=== PATIENT | female | born 1970 | race African-American/Black ===

== ENCOUNTER 2017-03-02 18:01 | Emergency (ER) | payer BC ==
[2017-03-02] MEDS ORDERED: ONDANSETRON PF 4 MG/2 ML VIAL. IV ONE (18:30)
[2017-03-02] MEDS ORDERED: HYDROmorphone PF 1 MG/ML DISP.SYRIN IV ONE ×2 (18:30→19:45)
[2017-03-02] MEDS ORDERED: IV NORMAL SALINE 1,000ML 1,000 ML IV ONE (18:30)
[2017-03-02 19:12] LABS: BASO # 0.1 x10^3/uL (0.0-0.2); BASO % 1 % (0-3); EOS # 0.4 x10^3/uL (0.0-0.7); EOS % 3 % (0-3); HEMATOCRIT 36.3 % (36.0-47.0); HEMOGLOBIN 11.8 g/dL (12.0-15.5); LYMPH # 3.2 x10^3/uL (1.0-4.8); LYMPH % 27 % (24-48); MEAN CORPUSCULAR HEMOGLOBIN 26 pg (25-35); MEAN CORPUSCULAR HGB CONC 33 g/dL (31-37); MEAN CORPUSCULAR VOLUME 81 fL (79-100); MONO # 0.6 x10^3/uL (0.0-1.1); MONO % 5 % (0-9); NEUT # 7.6 x10^3uL (1.8-7.7); NEUT % 64 % (31-73); PLATELET COUNT 367 x10^3/uL (140-400); WHITE BLOOD COUNT 11.9 x10^3/uL (4.0-11.0)
[2017-03-02 19:20] LABS: ALBUMIN 2.3 g/dL (3.4-5.0); ALBUMIN/GLOBULIN RATIO 0.8 (1.0-1.7); CALCIUM 6.1 mg/dL (8.5-10.1); CREATININE 0.8 mg/dL (0.6-1.0); GFR 93.9; TOTAL BILIRUBIN 0.1 mg/dL (0.2-1.0); TOTAL PROTEIN 5.1 g/dL (6.4-8.2)
[2017-03-02 19:22] LABS: POTASSIUM 2.7 mmol/L (3.5-5.1)
--- NOTE | 2017-03-02 19:32 | RAD ---
CT scan of the head without contrast 03/02/2017 Clinical History: Sudden onset of headache and memory loss. Technique: Unenhanced, contiguous, 5 mm axial sections were obtained through the head. One or more of the following individualized dose reduction techniques were utilized for this study: 1. Automated exposure control. 2. Adjustment of the mA and/or kV according to patient size. 3. Use of iterative reconstruction technique. Findings: The ventricles and sulci are within normal limits in size and configuration. No focal area of abnormal attenuation is seen involving the brain parenchyma. No extra-axial fluid collection is seen. No skull fracture is seen. Impression: Negative study. Electronically signed by: Hernán Parnell MD (03/02/2017 7:28 PM) [facility]
[2017-03-02] MEDS ORDERED: KETOROLAC 30 MG/ML VIAL. IV ONE (19:45)
[2017-03-02] MEDS ORDERED: POTASSIUM CHLORIDE 20 MEQ TABLET.ER. PO ONE (19:45)
[2017-03-02 20:23] LABS: BILIRUBIN,URINE NEG (NEG); CLARITY,URINE HAZY; COLOR,URINE YELLOW; GLUCOSE,URINE NEG (NEG); NITRITE,URINE NEG (NEG); UROBILINOGEN,URINE 0.2 mg/dL (0.2 mg/dL)
[2017-03-02 20:35] LABS: BACTERIA,URINE FEW /HPF (0-FEW); SQUAMOUS EPITHELIAL CELL,UR MANY /LPF
[2017-03-02] MEDS ORDERED: POTA20TA84 PO (20:42)
--- NOTE | 2017-03-02 20:42 | PHYS DOC ---
Past History Past Medical History: No Pertinent History Past Surgical History: No Surgical History Alcohol Use: None Drug Use: None Adult General Chief Complaint Chief Complaint: HEADACHE HPI HPI Patient is a 46-year-old female with no past medical history presents to the ER today complaining of headache with nausea and vomiting that started earlier today. Patient reports she has pain specifically in the right posterior occipital area. Patient reports the pain occurred gradually over the course of 1 -2 hours but initially started while she was sitting in a chair after eating dinner. Patient reports one episode of nausea and vomiting. Patient reports after emesis she felt much better. Patient reports that the pain has radiated down her neck into her right shoulder. Patient currently without any other complaints of nausea vomiting diarrhea chest pain shortness of breath cough cold or runny nose. Patient denies any double or blurred vision. Patient has any weakness to her upper or lower extremities. Patient denies any paresthesias to her face or slurred speech. Patient denies any visual changes. Patient has any fevers shakes chills cough cold or runny nose. Patient has any photophobia. Patient denies any nuchal rigidity. Patient reports that she has a family history of stroke and was worried that she might be having a stroke but she was also experiencing some memory loss at the time. Patient's ER physical exam was significant for tenderness to palpation to her right posterior occiput. Patient's pupils were equally round and reactive to light. Her extraocular motions are intact. Patient normal funduscopic exam. Patient was alert awake oriented 3. She was neurologically intact. Patient had good memory of short-term and long-term items. Patient was able to articulate words and symptoms very well. Patient's motor strength was 5 out of 5 in her upper and lower extremity. Sensation was intact. Her cranial nerves to 12 are intact. Was regular rate and rhythm. Lungs were clear. No wheezing rales or rhonchi. No nuchal rigidity, no photophobia. Patient does not present with any signs or symptoms of be consistent with meningitis. Patient is nontoxic appearing and resting comfortably. Patient's ER workup was significant for labs that only revealed hypokalemia with potassium 2.7. This has been repleted in the ER. Patient's vital signs have been stable patient was slightly tachycardic at a heart rate of 105 over 1 ER and after the fluids her heart rate does come down to 95. Patient's EKG revealed normal sinus rhythm with nonspecific ST-T wave abnormalities heart rate of 93. No evidence of ST elevation [place]. EKG does not reveal evidence of anterolateral myocardial damage. I disagree with the reading from the EKG. While in the ER the patient was given a liter of normal saline, Dilaudid 0.5 mg IV 2 doses, Toradol IV and Zofran. Patient reports significant improvement in her symptoms. Patient currently reports the pain is a 1-2 out of 10. Patient feels comfortable with the plan to be discharged home. Patient's CT scan of her head was discussed with her which was unremarkable for any acute pathology. Assessment and plan: Right-sided occipital headache. This does not appear to be acute onset/ thunderclap type headache. Patient reports has been gradually getting worse. Patient denies any other symptomatology and appears headache is significantly improved while in the ER. Patient's ER workup has been unremarkable. Patient feels very comfortable the plan to be discharged home. LP has been offered patient however given her significant improvement in symptoms utilizing shared decision making the patient currently is declining. Patient understands the risk and the limitations of an ER workup including the possibility of still having a stroke versus subarachnoid and the need to follow-up with her primary care physician if the symptoms persist. Review of Systems Review of Systems Current Medications Current Medications Current Medications Medications (Trade) Dose Ordered Sig/Stephy Start Time Stop Time Status Last Admin Dose Admin Hydromorphone HCl (Dilaudid) 0.5 mg 1X ONCE 03/02/17 19:45 03/02/17 19:46 DC 03/02/17 20:05 0.5 MG Ketorolac Tromethamine (Toradol) 30 mg 1X ONCE 03/02/17 19:45 03/02/17 19:46 DC 03/02/17 20:00 30 MG Ondansetron HCl (Zofran) 4 mg 1X ONCE 03/02/17 18:30 03/02/17 18:31 DC 03/02/17 18:53 4 MG Potassium Chloride (Klor-Con) 40 meq 1X ONCE 03/02/17 19:45 03/02/17 19:46 DC 03/02/17 20:00 40 MEQ Sodium Chloride 1,000 ml @ 1,000 mls/hr 1X ONCE 03/02/17 18:30 03/02/17 19:29 DC 03/02/17 18:50 1,000 MLS/HR Allergies Allergies Allergies Coded Allergies Type Severity Reaction Last Updated Verified No Known Drug Allergies 03/02/17 No Physical Exam Physical Exam Review of systems: Constitutional: Denies fever or chills Eyes: Denies change in visual acuity, redness, or eye pain HENT: Denies nasal congestion or sore throat All other review systems are negative except as documented in the history of present illness portion. Physical exam: Constitutional: Well developed, well nourished, no acute distress, non-toxic appearance. HENT: Normocephalic, atraumatic, bilateral external ears normal, oropharynx moist, no oral exudates, nose normal. Eyes: PERRLA, EOMI, conjunctiva normal, no discharge. Neck: Normal range of motion, no tenderness, supple, no stridor. Cardiovascular:Heart rate regular rhythm Lungs & Thorax: Bilateral breath sounds clear to auscultation Abdomen: Bowel sounds normal, soft, no tenderness, no masses, no pulsatile masses. Skin: Warm, dry, no erythema, no rash. Back: No tenderness, no CVA tenderness. Extremities: No tenderness, no cyanosis, no clubbing, ROM intact, no edema. Neurologic: Alert and oriented X 3, normal motor function, normal sensory function, no focal deficits noted. Psychologic: Affect normal, judgement normal, mood normal. Current Patient Data Vital Signs Vital Signs Date Time Temp Pulse Resp B/P (MAP) Pulse Ox O2 Delivery O2 Flow Rate FiO2 03/02/17 19:27 101 16 137/69 (91) 99 Room Air 03/02/17 18:28 98.3 Lab Results Laboratory Tests Test 03/02/17 18:52 White Blood Count 11.9 x10^3/uL (4.0-11.0) H Red Blood Count 4.50 x10^6/uL (3.50-5.40) Hemoglobin 11.8 g/dL (12.0-15.5) L Hematocrit 36.3 % (36.0-47.0) Mean Corpuscular Volume 81 fL (79-100) Mean Corpuscular Hemoglobin 26 pg (25-35) Mean Corpuscular Hemoglobin Concent 33 g/dL (31-37) Red Cell Distribution Width 16.0 % (11.5-14.5) H Platelet Count 367 x10^3/uL (140-400) Neutrophils (%) (Auto) 64 % (31-73) Lymphocytes (%) (Auto) 27 % (24-48) Monocytes (%) (Auto) 5 % (0-9) Eosinophils (%) (Auto) 3 % (0-3) Basophils (%) (Auto) 1 % (0-3) Neutrophils # (Auto) 7.6 x10^3uL (1.8-7.7) Lymphocytes # (Auto) 3.2 x10^3/uL (1.0-4.8) Monocytes # (Auto) 0.6 x10^3/uL (0.0-1.1) Eosinophils # (Auto) 0.4 x10^3/uL (0.0-0.7) Basophils # (Auto) 0.1 x10^3/uL (0.0-0.2) Sodium Level 145 mmol/L (136-145) Potassium Level 2.7 mmol/L (3.5-5.1) *L Chloride Level 113 mmol/L (98-107) H Carbon Dioxide Level 23 mmol/L (21-32) Anion Gap 9 (6-14) Blood Urea Nitrogen 11 mg/dL (7-20) Creatinine 0.8 mg/dL (0.6-1.0) Estimated GFR (Cockcroft-Gault) 93.9 BUN/Creatinine Ratio 14 (6-20) Glucose Level 82 mg/dL (70-99) Calcium Level 6.1 mg/dL (8.5-10.1) L Total Bilirubin 0.1 mg/dL (0.2-1.0) L Aspartate Amino Transferase (AST) 12 U/L (15-37) L Alanine Aminotransferase (ALT) 14 U/L (14-59) Alkaline Phosphatase 60 U/L (46-116) Total Protein 5.1 g/dL (6.4-8.2) L Albumin 2.3 g/dL (3.4-5.0) L Albumin/Globulin Ratio 0.8 (1.0-1.7) L EKG EKG [] Radiology/Procedures Radiology/Procedures [] Course & Med Decision Making Course & Med Decision Making Pertinent Labs and Imaging studies reviewed. (See chart for details) [] Dragon Disclaimer Dragon Disclaimer This chart was dictated in whole or in part using Voice Recognition software in a busy, high-work load, and often noisy Emergency Department environment. It may contain unintended and wholly unrecognized errors or omissions. Departure Departure: Impression: Primary Impression: Headache Additional Impression: Hypokalemia Disposition: HOME, SELF-CARE Condition: IMPROVED Referrals: PCP,NO (PCP) Patient Instructions: General Headache Without Cause, Hypokalemia Scripts Potassium Chloride (K-Tab ER) 20 Meq Tablet.er 20 MEQ PO BID, #10 TAB.SR Prov: GABBIE ATKINS MD 03/02/17 Problem Qualifiers GABBIE ATKINS MD Mar 02, 2017 20:42
[2017-03-02 20:45] VITALS: BP 138/74
--- NOTE | 2017-03-03 06:50 | EKG ---
[address] [address] Test Date: 2017-03-02 Test Time: 18:29:59 Pat Name: LEANNE NINO Department: Room: Gender: F Rda: : 1970 Requested By: GABBIE ATKINS Order Number: [id number] Reading MD: Measurements Intervals [place] Rate: 93 P: 54 OK: 140 QRS: 43 QRSD: 84 T: 32 QT: 338 QTc: 423 Interpretive Statements SINUS RHYTHM QRS(T) CONTOUR ABNORMALITY CONSIDER ANTEROLATERAL MYOCARDIAL DAMAGE RI6.01 Unconfirmed report No previous ECG available for comparison
== END 2017-03-02 20:50 | disposition home or self-care (01) ==
LOC: ER 18:01
DX: E87.6 Hypokalemia (principal); R51 Headache
CPT/HCPCS: 36415; 70450; 80053; 81001; 85025; 87086; 93005; 96361; 96374; 96375; 96376; 99285; J1170; J1885; J2405; J7030

== ENCOUNTER 2018-09-23 10:34 | Emergency (ER) | payer BC ==
[~2018-09-23] VITALS: Ht 160 cm; Wt 92.5 kg
[~2018-09-23 10:34] MED LIST: POTA20TA84 PO
[2018-09-23] MEDS ORDERED: KETOROLAC 15 MG/ML VIAL. IV ONE (11:15)
[2018-09-23 11:39] LABS: BASO # 0.1 x10^3/uL (0.0-0.2); BASO % 1 % (0-3); EOS # 0.3 x10^3/uL (0.0-0.7); EOS % 3 % (0-3); HEMATOCRIT 44.7 % (36.0-47.0); HEMOGLOBIN 14.7 g/dL (12.0-15.5); LYMPH # 2.4 x10^3/uL (1.0-4.8); LYMPH % 31 % (24-48); MEAN CORPUSCULAR HEMOGLOBIN 26 pg (25-35); MEAN CORPUSCULAR HGB CONC 33 g/dL (31-37); MEAN CORPUSCULAR VOLUME 78 fL (79-100); MONO # 0.4 x10^3/uL (0.0-1.1); MONO % 5 % (0-9); NEUT # 4.6 x10^3uL (1.8-7.7); NEUT % 60 % (31-73); PLATELET COUNT 435 x10^3/uL (140-400); RED BLOOD COUNT 5.71 x10^6/uL (3.50-5.40); WHITE BLOOD COUNT 7.7 x10^3/uL (4.0-11.0)
--- NOTE | 2018-09-23 11:51 | RAD ---
PROCEDURE: CHEST PA LATERAL CLINICAL INDICATION: chest pain since last night COMPARISON: None FINDINGS: No pneumothorax identified. Cardiac and mediastinal contours unremarkable. No pulmonary consolidation or acute airspace disease. No acute osseous abnormalities identified. IMPRESSION: No pulmonary consolidation or acute airspace disease. Electronically signed by: Igor Reyes DO (09/23/2018 11:47 AM) [id number]
[2018-09-23 12:01] LABS: ALBUMIN 3.5 g/dL (3.4-5.0); ALBUMIN/GLOBULIN RATIO 0.8 (1.0-1.7); CALCIUM 9.5 mg/dL (8.5-10.1); CREATININE 0.9 mg/dL (0.6-1.0); GFR 81.6; MAGNESIUM 2.2 mg/dL (1.8-2.4); POTASSIUM 3.7 mmol/L (3.5-5.1); TOTAL BILIRUBIN 0.2 mg/dL (0.2-1.0); TOTAL PROTEIN 7.8 g/dL (6.4-8.2)
--- NOTE | 2018-09-23 12:03 | PHYS DOC ---
Past History Past Medical History: No Pertinent History Past Surgical History: No Surgical History Smoking: Non-smoker Alcohol Use: Rarely Drug Use: None Adult General Chief Complaint Chief Complaint: CHEST PAIN HPI HPI Patient is a 47-year-old female who presents complaining of chest discomfort. This started yesterday. There is a respirophasic component to it and a mild cough. No worsening with exertion. No nausea, vomiting, or diaphoresis. Worse with deep breaths. Sharp and aching discomfort. Nothing seems to make it better. [] Review of Systems Review of Systems Constitutional: Denies fever or chills [] Eyes: Denies change in visual acuity, redness, or eye pain [] HENT: Denies nasal congestion or sore throat [] Respiratory: Denies cough or shortness of breath [] Cardiovascular: No additional information not addressed in HPI [] GI: Denies abdominal pain, nausea, vomiting, bloody stools or diarrhea [] : Denies dysuria or hematuria [] Musculoskeletal: Denies back pain or joint pain [] Integument: Denies rash or skin lesions [] Neurologic: Denies headache, focal weakness or sensory changes [] Endocrine: Denies polyuria or polydipsia [] All other systems were reviewed and found to be within normal limits, except as documented in this note. Current Medications Current Medications Current Medications Medications (Trade) Dose Ordered Sig/Stephy Start Time Stop Time Status Last Admin Dose Admin Ketorolac Tromethamine (Toradol 15mg Vial) 15 mg 1X ONCE 09/23/18 11:15 09/23/18 11:16 DC 09/23/18 11:46 15 MG Allergies Allergies Allergies Coded Allergies Type Severity Reaction Last Updated Verified No Known Drug Allergies 03/02/17 No Physical Exam Physical Exam Constitutional: Well developed, well nourished, no acute distress, non-toxic appearance. [] HENT: Normocephalic, atraumatic, bilateral external ears normal, oropharynx moist, no oral exudates, nose normal. [] Eyes: PERRLA, EOMI, conjunctiva normal, no discharge. [] Neck: Normal range of motion, no tenderness, supple, no stridor. [] Cardiovascular:Heart rate regular rhythm, no murmur [] Lungs & Thorax: Bilateral breath sounds clear to auscultation no chest tenderness to palpation [] Abdomen: Bowel sounds normal, soft, no tenderness, no masses, no pulsatile masses. [] Skin: Warm, dry, no erythema, no rash. [] Back: No tenderness, no CVA tenderness. [] Extremities: No tenderness, no cyanosis, no clubbing, ROM intact, no edema. [] Neurologic: Alert and oriented X 3, normal motor function, normal sensory function, no focal deficits noted. [] Psychologic: Affect normal, judgement normal, mood normal. [] Current Patient Data Vital Signs Vital Signs Date Time Temp Pulse Resp B/P (MAP) Pulse Ox O2 Delivery O2 Flow Rate FiO2 09/23/18 11:49 97.7 76 18 137/78 (97) 96 09/23/18 10:44 Room Air Lab Results Laboratory Tests Test 09/23/18 11:25 White Blood Count 7.7 x10^3/uL (4.0-11.0) Red Blood Count 5.71 x10^6/uL (3.50-5.40) H Hemoglobin 14.7 g/dL (12.0-15.5) Hematocrit 44.7 % (36.0-47.0) Mean Corpuscular Volume 78 fL (79-100) L Mean Corpuscular Hemoglobin 26 pg (25-35) Mean Corpuscular Hemoglobin Concent 33 g/dL (31-37) Red Cell Distribution Width 17.0 % (11.5-14.5) H Platelet Count 435 x10^3/uL (140-400) H Neutrophils (%) (Auto) 60 % (31-73) Lymphocytes (%) (Auto) 31 % (24-48) Monocytes (%) (Auto) 5 % (0-9) Eosinophils (%) (Auto) 3 % (0-3) Basophils (%) (Auto) 1 % (0-3) Neutrophils # (Auto) 4.6 x10^3uL (1.8-7.7) Lymphocytes # (Auto) 2.4 x10^3/uL (1.0-4.8) Monocytes # (Auto) 0.4 x10^3/uL (0.0-1.1) Eosinophils # (Auto) 0.3 x10^3/uL (0.0-0.7) Basophils # (Auto) 0.1 x10^3/uL (0.0-0.2) Troponin I Quantitative < 0.017 ng/mL (0-0.055) EKG EKG EKG shows a sinus rhythm, no ST elevation, heart rate of 80 bpm, normal axis, normal QTC. Interpreted by me at 1050, no old EKG available for comparison.[] Radiology/Procedures Radiology/Procedures PROCEDURE: CHEST PA LATERAL CLINICAL INDICATION: chest pain since last night COMPARISON: None FINDINGS: No pneumothorax identified. Cardiac and mediastinal contours unremarkable. No pulmonary consolidation or acute airspace disease. No acute osseous abnormalities identified. IMPRESSION: No pulmonary consolidation or acute airspace disease. CTA of the chest with contrast, 09/23/2018: HISTORY: Elevated d-dimer, shortness of breath Multidetector CT imaging was performed following an IV bolus injection of iodinated contrast material. Multiplanar reconstructions were produced including coronal and sagittal MIP images. No filling defects are seen in the central pulmonary arteries to suggest pulmonary emboli. The thoracic aorta is of normal caliber. A trace amount of pericardial fluid is present. No mediastinal or hilar adenopathy is seen. No pulmonary consolidation or significant volume of pleural fluid is evident. There are mild scattered degenerative changes in the spine. IMPRESSION: No CT evidence of central pulmonary emboli.[] Course & Med Decision Making Course & Med Decision Making Pertinent Labs and Imaging studies reviewed. (See chart for details) ED course: Patient arrived, was placed in bed, and tolerated exam well. She was transported to and from [place] with any complications. She achieved significant relief with IV NSAIDs. After the return of the laboratory and imaging findings, these were discussed with the patient who voiced understanding. All questions were answered. Patient was discharged in improved condition. Medical decision making: There is no evidence of acute coronary syndrome, pneumonia, pneumothorax, pulmonary embolism, thoracic aneurysm dissection, nor esophageal rupture.[] Dragon Disclaimer Dragon Disclaimer This electronic medical record was generated, in whole or in part, using a voice recognition dictation system. Departure Departure: Impression: Primary Impression: Chest pain Disposition: 01 HOME, SELF-CARE Condition: IMPROVED Referrals: PCP,UNKNOWN (PCP) Patient Instructions: Chest Pain (Nonspecific) Additional Instructions: Follow-up with your regular doctor in 2 days. Take medication as prescribed. Return to the ER if worsening discomfort or any other concerns. Scripts Meloxicam (MELOXICAM) 7.5 Mg Tablet 7.5 MG PO DAILY for PAIN, #20 TAB Prov: OLIVERIO MAYO DO 09/23/18 Problem Qualifiers Primary Impression: Chest pain Chest pain type: unspecified Qualified Codes: R07.9 - Chest pain, unspecified OLIVERIO MAYO DO Sep 23, 2018 12:03
[2018-09-23] MEDS ORDERED: IOHEXOL 350 MG/ML 100 ML VIAL. IV ONE (12:30)
--- NOTE | 2018-09-23 13:01 | RAD ---
CTA of the chest with contrast, 09/23/2018: HISTORY: Elevated d-dimer, shortness of breath Multidetector CT imaging was performed following an IV bolus injection of iodinated contrast material. Multiplanar reconstructions were produced including coronal and sagittal MIP images. No filling defects are seen in the central pulmonary arteries to suggest pulmonary emboli. The thoracic aorta is of normal caliber. A trace amount of pericardial fluid is present. No mediastinal or hilar adenopathy is seen. No pulmonary consolidation or significant volume of pleural fluid is evident. There are mild scattered degenerative changes in the spine. IMPRESSION: No CT evidence of central pulmonary emboli. PQRS Compliance Statement: One or more of the following individualized dose reduction techniques were utilized for this examination: 1. Automated exposure control 2. Adjustment of the mA and/or kV according to patient size 3. Use of iterative reconstruction technique Electronically signed by: Joesph García MD (09/23/2018 12:58 PM) [place]
[2018-09-23] MEDS ORDERED: MELO7.5T29 PO (13:18)
[2018-09-23 13:38] VITALS: BP 124/61
--- NOTE | 2018-09-23 18:07 | EKG ---
[address] [address] Test Date: 2018-09-23 Test Time: 10:47:10 Pat Name: LEANNE NINO Department: Room: Gender: F Credit Risk Review Officer: MYLENE : 1970 Requested By: OLIVERIO MAYO Order Number: [id number] Reading MD: Aureliano Gonzalez MD Measurements Intervals [place] Rate: 80 P: 54 ME: 130 QRS: 44 QRSD: 82 T: 33 QT: 352 QTc: 409 Interpretive Statements SINUS RHYTHM Electronically Signed On 09-27-2018 13:17:54 CDT by Aureliano Gonzalez MD
== END 2018-09-23 13:38 | disposition home or self-care (01) ==
LOC: ER 10:34
DX: R07.89 Other chest pain (principal)
CPT/HCPCS: 36415; 71046; 71275; 80053; 81025; 83690; 83735; 83880; 84484; 85025; 85379; 85610; 93005; 96374; 99284; J1885; Q9967; 96372